=== PATIENT | male | born 1950 | race Caucasian/White ===

== ENCOUNTER → 2016-12-22 | Outpatient (REF) | payer OTHER, MEDICARE ==
[~2016-12-22] MED LIST: /INSU7030 SC; ACET50TA PO; AMLO10TA2 PO; ASPI325T PO; BISO10TA6 PO; COZA100T2 PO; DOXY150C PO; FERR32TA PO; LASI40TA PO; LEVO500T PO; LIPI80TA PO; LISI5TAB PO; LOSA100T PO; METF1000 PO; MIRA255PW PO; PERC7.5T12 PO
== END ==
LOC: M SMT 16:49
PROVIDERS: ATTEND Nurse Practitioner Women's Health
DX: N50.812 Left testicular pain (principal)

== ENCOUNTER → 2017-06-23 | Outpatient (CLI) | payer MEDICARE, OTHER ==
[2017-06-23 13:24] LABS: ANION GAP 6 MEQ/L (8-16); BLOOD UREA NITROGEN 19 MG/DL (7-18); CALCIUM LEVEL 9.1 MG/DL (8.8-10.2); CARBON DIOXIDE LEVEL 31 MEQ/L (21-32); CHLORIDE LEVEL 101 MEQ/L (98-107); CREATININE FOR GFR 0.92 MG/DL (0.70-1.30); GLOMERULAR FILTRATION RATE > 60.0 (>49); GLUCOSE, FASTING 275 MG/DL (80-110); POTASSIUM SERUM 4.3 MEQ/L (3.5-5.1); SODIUM LEVEL 138 MEQ/L (136-145)
== END ==
LOC: M WUC 10:27
PROVIDERS: ATTEND Internal Medicine Endocrinology, Diabetes & Metabolism
DX: E83.51 Hypocalcemia (principal)

== ENCOUNTER 2020-03-21 09:20 | Day surgery (SDC) | payer MEDICARE, OTHER ==
[~2020-03-21 09:20] MED LIST changes: -/INSU7030 SC; -ACET50TA PO; +MAPA500T17 PO; -MIRA255PW PO; +NOVO1INJ4 SC; +POLY1POW4 PO
[2020-03-21] MEDS ORDERED: propofoL 200 MG/20 ML VIAL ONE (09:45)
[2020-03-21] MEDS ORDERED: LIDOCAINE 2% 100MG/5ML SDV (FOR ANES.) ONE (09:45)
== END 2020-03-21 10:30 | disposition home or self-care (01) ==
LOC: M SDC 09:20
PROVIDERS: ATTEND Surgery
DX: Z12.11 Encounter for screening for malignant neoplasm of colon (principal); Z86.010 Personal history of colon polyps; D12.6 Benign neoplasm of colon, unspecified; K57.30 Diverticulosis of large intestine without perforation or abscess without bleeding; G47.30 Sleep apnea, unspecified; I10 Essential (primary) hypertension; Z79.4 Long term (current) use of insulin; Z79.899 Other long term (current) drug therapy; Z87.891 Personal history of nicotine dependence

== ENCOUNTER 2021-03-22 08:51 | Emergency (ER) | payer MEDICARE, OTHER ==
[~2021-03-22] VITALS: Ht 172.7 cm; Wt 161.0 kg
[2021-03-22] MEDS ORDERED: AMLO1TAB25 (09:17)
[2021-03-22] MEDS ORDERED: ATOR40TA75 (09:17)
[2021-03-22] MEDS ORDERED: LOSA100T50 (09:17)
[2021-03-22] MEDS ORDERED: HUMU70IN (09:17)
[2021-03-22] MEDS ORDERED: SPIR-10 (09:17)
[2021-03-22] MEDS ORDERED: FURO80TA2 (09:17)
[2021-03-22] MEDS ORDERED: METF10004 (09:17)
[2021-03-22] MEDS ORDERED: BISO5TAB14 (09:17)
[2021-03-22] MEDS ORDERED: KETOROLAC 60MG 2ML VIAL IM ONE (10:15)
[2021-03-22] MEDS ORDERED: VICT18IN SC (10:23)
[2021-03-22] MEDS ORDERED: VITAD400CA FT (10:23)
--- NOTE | 2021-03-22 10:46 | REP ---
INDICATION: L sided back pain into L leg. COMPARISON: None. TECHNIQUE: Axial scans with sagittal and coronal reconstructions. FINDINGS: Who minimal old T12 compression fracture. 4 mm retrolisthesis L1 on L2. 5 mm retrolisthesis L2 on L3. 7 mm anterolisthesis of L4 on L5. Severe multilevel facet arthropathy. Multi level spinal stenosis and foraminal encroachment. No fractures. L1-2 level: Decrease height and attenuation of the disc with gas in the central portion of the disc. Bilateral foraminal encroachment. Facet arthropathy. Mild spinal stenosis. L2-3 level: Decreased height of the disc with gas in the central portion of the disc. Disc bulging. Bilateral foraminal encroachment. Ligamentum flavum/facet arthropathy. Moderate to severe spinal stenosis. L3-4 level: decreased height of the disc. Gas in the central portion of the disc. Bulging disc. Bilateral foraminal encroachment. Limited flavum/facet arthropathy. Severe spinal stenosis. L4-5: 7 mm anterolisthesis L4 on L5, degenerated and bulging L4-5 disc. Marked ligamentum flavum/facet arthropathy. Severe spinal stenosis and bilateral foraminal encroachment. L5-S1: Degeneration of the disc. Bilateral foraminal encroachment. Facet arthropathy. Neural canal shows normal dimensions. IMPRESSION: Multilevel spinal stenosis most severe at the L4-5 level. Multilevel foraminal encroachment and disc degeneration. <Electronically signed by Aguilar Blanco > 03/22/21 [id number]
[2021-03-22 10:54] VITALS: BP 136/75
[2021-03-22] MEDS ORDERED: KETO10TAB PO (11:10)
== END 2021-03-22 11:15 | disposition home or self-care (01) ==
LOC: M ED 08:51
DX: M48.061 Spinal stenosis, lumbar region without neurogenic claudication (principal); M51.26 Other intervertebral disc displacement, lumbar region; M51.27 Other intervertebral disc displacement, lumbosacral region; E11.9 Type 2 diabetes mellitus without complications; G47.33 Obstructive sleep apnea (adult) (pediatric); Z79.4 Long term (current) use of insulin; Z79.899 Other long term (current) drug therapy; Z96.641 Presence of right artificial hip joint
CPT/HCPCS: 72131; 96372; 99283; J1885

== ENCOUNTER 2021-03-28 12:03 | Emergency (ER) | payer MEDICARE, OTHER ==
[~2021-03-28] VITALS: Ht 170.2 cm; Wt 163.7 kg
[~2021-03-28 12:03] MED LIST changes: +AMLO1TAB25; +ATOR40TA75; +BISO5TAB14; +FURO80TA2; +HUMU70IN; +KETO10TAB PO; +LOSA100T50; +METF10004; +SPIR-10; +VICT18IN SC; +VITAD400CA FT
[2021-03-28] MEDS ORDERED: LIDO5DIS41 TD (14:46)
[2021-03-28] MEDS ORDERED: METH-1165 PO (14:46)
[2021-03-28 15:14] VITALS: BP 137/73
== END 2021-03-28 15:26 | disposition home or self-care (01) ==
LOC: M ED 12:03
DX: M48.061 Spinal stenosis, lumbar region without neurogenic claudication (principal); M51.26 Other intervertebral disc displacement, lumbar region; M51.27 Other intervertebral disc displacement, lumbosacral region; M79.605 Pain in left leg; E11.9 Type 2 diabetes mellitus without complications; I10 Essential (primary) hypertension; E78.5 Hyperlipidemia, unspecified; G47.33 Obstructive sleep apnea (adult) (pediatric); Z79.82 Long term (current) use of aspirin; Z79.899 Other long term (current) drug therapy

== ENCOUNTER 2021-04-06 10:12 | Inpatient (IN) | payer MEDICARE, OTHER ==
[~2021-04-06] VITALS: Ht 172.7 cm; Wt 158.4 kg
[~2021-04-06 10:12] MED LIST changes: +LIDO5DIS41 TD; -LOSA100T50; +LOSA100T50 PO; -METF10004; +METF10004 PO; +METH-1165 PO; -SPIR-10; +SPIR-10 PO
[2021-04-06] MEDS ORDERED: BOOSTRIX/ADACEL VACCINE (DIPHTH/PERTUSS/ACELL/TETANUS) 0.5ML SYR IM ONE (11:15)
[2021-04-06 11:20] LABS: BASO % 0.2 % (0.0-1.0); EOS % 0.2 % (0.0-3.0); HEMATOCRIT 36.7 % (42.0-52.0); HEMOGLOBIN 11.8 g/dl (13.5-17.5); LYMPH # 0.7 10^3/uL (1.5-5.0); LYMPH % 4.4 % (24.0-44.0); MEAN CORPUSCULAR HEMOGLOBIN 30.1 pg (27.0-33.0); MEAN CORPUSCULAR HGB CONC 32.2 g/dl (32.0-36.5); MEAN CORPUSCULAR VOLUME 93.6 fl (80.0-96.0); MONO # 0.8 10^3/uL (0.0-0.8); MONO % 4.7 % (2.0-8.0); NEUTROPHILS # 14.4 10^3/uL (1.5-8.5); NEUTROPHILS % 89.9 % (36.0-66.0); PLATELET COUNT, AUTOMATED 211 10^3/uL (150-450); RED BLOOD COUNT 3.92 10^6/uL (4.30-6.10)
[2021-04-06 11:40] LABS: ERYTHROCYTE SEDIMENTATION RATE 54 mm/hr (0-20)
--- NOTE | 2021-04-06 11:52 | REP ---
INDICATION: pain, sp fall COMPARISON: None. TECHNIQUE: AP and lateral right tibia/fibula FINDINGS: Arthritic changes at the knee and ankle. No acute fracture or dislocation. Small calcifications versus chronic foreign bodies along the anterior mid quintanilla. IMPRESSION: No acute fracture or dislocation. <Electronically signed by Josh Lagos > 04/06/21 114
[2021-04-06 11:53] LABS: ALBUMIN 3.1 GM/DL (3.2-5.2); ALT/SGPT 46 U/L (12-78); BILIRUBIN,DIRECT 0.3 MG/DL (0.0-0.2); BLOOD UREA NITROGEN 20 MG/DL (7-18); C REACTIVE PROTEIN QUANTITATIV 5.45 MG/DL (0.00-0.30); CARBON DIOXIDE LEVEL 27 MEQ/L (21-32); CHLORIDE LEVEL 103 MEQ/L (98-107); CK-MB VALUE MASS 4.8 NG/ML (<3.6); CPK CREATINE PHOSPHOKINASE 354 U/L (39-308); CREATININE FOR GFR 0.94 MG/DL (0.70-1.30); GLOMERULAR FILTRATION RATE > 60.0 (>42); GLUCOSE, FASTING 216 MG/DL (70-100); MB/CK RELATIVE INDEX 1.36 (< OR =4); NT-PRO BNP 62 PG/ML (<125); POTASSIUM SERUM 3.7 MEQ/L (3.5-5.1); SODIUM LEVEL 137 MEQ/L (136-145); TOTAL PROTEIN 6.8 GM/DL (6.4-8.2); TROPONIN I < 0.02 NG/ML (< 0.10)
--- NOTE | 2021-04-06 11:53 | REP ---
INDICATION: pain, sp fall COMPARISON: None. TECHNIQUE: AP and frog-lateral right femur FINDINGS: Prior hip replacement in stable satisfactory position. Chronic degenerative changes noted. No acute fracture or dislocation. No subcutaneous emphysema or significant foreign body. IMPRESSION: . No acute fracture or dislocation. <Electronically signed by Josh Lagos > 04/06/21 1141
--- NOTE | 2021-04-06 11:54 | REP ---
INDICATION: swollen legs COMPARISON: 12/16/2015 TECHNIQUE: Portable AP view of the chest FINDINGS: Mediastinum and cardiac silhouette stable. Chronic elevation to the left hemidiaphragm unchanged. No obvious acute consolidation, effusion, or pneumothorax. Skeletal structures are intact. IMPRESSION: Chronic stable changes. No obvious acute consolidation or effusion. <Electronically signed by Josh Lagos > 04/06/21 [id number]
--- NOTE | 2021-04-06 12:37 | REP ---
INDICATION: swllen legs right>left COMPARISON: None. TECHNIQUE: Lance scale and color Doppler evaluation using linear high frequency transducer. FINDINGS: Ultrasound examination of the right and left lower extremity deep venous structures from the common femoral vein through the popliteal veins demonstrates normal compressibility flow and wave patterns in response to respiration and augmentation. There is no evidence for deep venous thrombosis. IMPRESSION: No evidence for deep venous thrombosis. <Electronically signed by Josh Lagos > 04/06/21 [id number]
[2021-04-06] MEDS ORDERED: IMIPENEM/CILASTATIN 500 MG in D5W MINI-BAG PLUS 100 ML IV ONE (12:55)
[2021-04-06] MEDS ORDERED: VANCOMYCIN HCL 2,000 MG in D5W 500 ML IV ONE (12:55)
[2021-04-06] MEDS ORDERED: VANCOMYCIN HCL 1,000 MG, VIAL MATE ADAPTER 1 EACH in NS 250 ML IV ONE ×6 (13:00)
[2021-04-06 13:41] LABS: RSV AMPLIFICATION NEGATIVE (NEGATIVE)
[2021-04-06] MEDS ORDERED: MOM 30ML SUSPENSION UDC PO PRN (13:50)
[2021-04-06] MEDS ORDERED: ACETAMINOPHEN TAB 650MG DOSE (2X325MG) PO PRN (13:50)
[2021-04-06] MEDS ORDERED: MAALOX 30 ML SUSP *UDC PO PRN (13:50)
[2021-04-06] MEDS ORDERED: DEXTROSE 50% 50 ML SYRINGE IV PRN (13:50)
[2021-04-06] MEDS ORDERED: GLUCAGON INJ 1MG VIAL SC PRN (13:50)
[2021-04-06] MEDS ORDERED: GLUCOSE 4GM CHEW TABLET PO PRN (13:50)
[2021-04-06] MEDS ORDERED: FURO80TA2 PO (14:34)
[2021-04-06] MEDS ORDERED: AMLO1TAB25 PO (14:34)
[2021-04-06] MEDS ORDERED: HUMU70IN SC (14:34)
[2021-04-06] MEDS ORDERED: ATOR40TA75 PO (14:34)
[2021-04-06] MEDS ORDERED: METH-1165 PO (14:34)
[2021-04-06] MEDS ORDERED: LIDO1PAD TOP (14:34)
[2021-04-06] MEDS ORDERED: BISO5TAB14 PO (14:34)
--- NOTE | 2021-04-06 14:39 | HPEPDOC ---
[facility] Medical History & Physical Date of Admission Apr 06, 2021 Date of Service: Apr 06, 2021 History and Physical Chief complaint: Presented to [facility] with RLE pain History of present illness: Patient is a 71-year-old male with a PMHx of HTN, CHF?, DLP, IDDM2, Fatty liver disease, Chronic venous insufficiency, Vitamin D deficiency, Obesity who presented to the emergency room with complaints of RLE pain. Patient reports that 3 weeks ago, he had presented to the hospital with complaints of left leg/hip pain at that time he received a CT scan that had revealed spinal stenosis and degenerative disc disease. Patient was given a follow-up appointment with spinal specialist, Dr. Rodrigues for 04/30/21. One half weeks ago, patient had slipped while getting out of his car, landing on his right leg. Patient reported that he had a minor abrasion at the lower portion of his right leg came to the ER for further evaluation, was given additional pain medications. Advised to continue monitoring his psych for any signs of infection and return if there is any warmth / drainage / tenderness / or signs of infection noted. Patient presented to the emergency room today because his right leg was warm and red. He denied any tenderness reported that at home he was experiencing subjective fevers, no chills. Reported minor amount of drainage from his right leg recently, but not today. Patient denies any chest pain, shortness of breath. Denies any changes. Baseline cough. Has not experienced any nausea, vomiting, abdominal pain, constipation, diarrhea, or urinary discomfort. He reports his appetite is normal and has experienced some weight loss. Past Medical History: HTN, CHF?, DLP, IDDM2, Fatty liver disease, Chronic venous insufficiency, Vitamin D deficiency, Obesity Past Surgical History: Right hip replacement 2005 Benign lump of his neck was removed by ENT, Dr. 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[employer] [facility] Review of Systems: 10 point review of systems complete, all negative otherwise stated in HPI Physical exam: - Vitals: BP [143/81], HR [79], RR [24], Sat [97%RA], Temp [98.3F] - General: Sitting up at the edge of the bed, No acute distress, Speaking in full sentences, AAOx3 - HEENT: NC, AT, PERRLA - CVS: RRR, +S1S2, - Murmurs / rubs / gallops - Lungs: Fair air entry bilaterally, No appreciable wheezing / rales / rhonchi - Abdomen: Soft, Non-distended, Non-tender, Obese - Extremities: 2+ pitting edema bilaterally - patient reports that his current leg swelling has been chronic - Neuro: No focal motor or sensory deficit - Skin: Right lower extremity with erythema and warmth noted on the anterior surface. No tenderness. No drainage noted. Small abrasion noted at the distal aspect of his right leg. Labs: See below Imaging: CXR 04/06: Chronic stable changes. No obvious acute consolidation or effusion. Vascular US 04/06: No evidence for deep venous thrombosis. XR Femur 04/06: No acute fracture or dislocation. XR Tib/Fib 04/06: No acute fracture or dislocation. EKG: See below Assessment and Plan: RLE cellulitis - Patient reported that 1.5 ago, he had fallen out of his car and sustained an abrasion of his RLE - Hemodynamically stable / Afebrile - Leukocytosis with neutrophil predominance / Elevated CRP - Imaging negative for any blood clots or fractures - Will check procalcitonin / blood cultures / ASO / MRSA screen - Will trend CRP - Will start Augmentin / Doxycycline (Day #1) - If clinical improvement is noted, will anticipate discharge home tomorrow HTN - Blood pressure currently is well controlled - c/w Furosemide / Spironolactone / Losartan / Bisoprolol / Amlodipine with hold parameters CHF? - Patient reports that he had an echocardiogram completed 5 years ago - Will continue with spironolactone and furosemide - Patient does not have a senior business broker, will suggest he follow-up with his primary care provider for referral on discharge DLP - c/w Statin IDDM2 - Glucose well controlled - Will start ISS; will provide low dose Levemir Fatty liver disease - Was noted in his medical record in the past - No LFT abnormalities noted. Currently Chronic venous insufficiency Vitamin D deficiency - Will c/w supplementation on discharge Obesity - BMI 54.3 - Complicating medical care DVT prophylaxis - Will start Heparin Vital Signs Vital Signs Date Time Temp Pulse Resp B/P (MAP) Pulse Ox O2 Delivery O2 Flow Rate FiO2 04/06/21 13:59 79 24 143/81 (101) 97 Room Air 04/06/21 10:14 98.3 Laboratory Data Labs 24H Laboratory Tests 2 04/06/21 10:58: Immature Granulocyte % (Auto) 0.6, Neutrophils (%) (Auto) 89.9H, Lymphocytes (%) (Auto) 4.4L, Monocytes (%) (Auto) 4.7, Eosinophils (%) (Auto) 0.2, Basophils (%) (Auto) 0.2, Neutrophils # (Auto) 14.4H, Lymphocytes # (Auto) 0.7L, Monocytes # (Auto) 0.8, Eosinophils # (Auto) 0.0, Basophils # (Auto) 0.0, Nucleated Red Blood Cells % (auto) 0.0, Erythrocyte Sedimentation Rate 54H, Anion Gap 7L, Glomerular Filtration Rate > 60.0, Calcium Level 9.0, Total Bilirubin 1.0, Direct Bilirubin 0.3H, Aspartate Amino Transf (AST/SGOT) 31, Alanine Aminotransferase (ALT/SGPT) 46, Alkaline Phosphatase 78, Total Creatine Kinase 354H, Creatine Kinase MB 4.8H, Creatine Kinase MB Relative Index 1.36, Troponin I < 0.02, C-Reactive Protein, Quantitative 5.45H, EJ-Tcc-V-Type Natriuretic Peptide 62, Total Protein 6.8, Albumin 3.1L, Albumin/Globulin Ratio 0.8 04/06/21 12:57: Coronavirus (COVID-19)(PCR) NEGATIVE, Influenza Type A (RT-PCR) NEGATIVE, Influenza Type B (RT-PCR) NEGATIVE, Respiratory Syncytial Virus (PCR) NEGATIVE CBC/BMP Laboratory Tests 04/06/21 10:58 Microbiology Microbiology 04/06/21 Blood Culture, Received Pending 04/06/21 Blood Culture, Received Pending Home Medications Scheduled Amlodipine Besylate (Amlodipine Besylate) 10 Mg Tablet, 10 MG PO DAILY Atorvastatin Calcium (Atorvastatin Calcium) 40 Mg Tablet, 40 MG PO DAILY Bisoprolol Fumarate (Bisoprolol Fumarate) 5 Mg Tablet, 5 MG PO DAILY Furosemide (Furosemide) 80 Mg Tablet, 80 MG PO BID Lidocaine (Lidocaine) 5% Adh..patch, 1 APPLIC TOP DAILY Liraglutide (Victoza 2-Nii) 0.6 Mg/0.1 Ml Pen.injctr, 1.2 MG SC DAILY Losartan Potassium (Losartan Potassium) 100 Mg Tablet, 100 MG PO DAILY Metformin HCl (Metformin HCl) 1,000 Mg Tablet, 1,000 MG PO BID Methocarbamol (Methocarbamol) 750 Mg Tablet, 750 MG PO TID Spironolactone (Spironolactone) 25 Mg Tablet, 25 MG PO DAILY Vitamin D (Vitamin D3) 10 Mcg Tablet, 2,000 MCG FT DAILY Miscellaneous Medications Insulin NPH Hum/Reg Insulin Hm (Humulin 70-30 Vial) 100 Unit/1 Ml Vial Allergies Coded Allergies: No Known Allergies (Unverified , 03/22/21) PERLA VIGIL MD Apr 06, 2021 14:38
[2021-04-06 14:55] VITALS: BP 135/68
[2021-04-06] MEDS: DOXYCYCLINE HYCLATE 100MG TABLET PO SCH ×2 (15:25→21:52)
[2021-04-06] MEDS: AUGMENTIN 875 MG TAB PO SCH ×2 (15:25→21:52)
[2021-04-06] MEDS ORDERED: D31000TA2 PO (15:39)
[2021-04-06] MEDS ORDERED: ASPI325T57 PO (15:39)
[2021-04-06] MEDS ORDERED: KETO10TAB PO (15:39)
[2021-04-06] MEDS ORDERED: HOME MED LIST COMPLETE! XX SCH (15:40)
[2021-04-06 15:42] LABS: ANTI-STREPTOLYSIN O QUANT 62.9 IU/ML (<214.0)
[2021-04-06] MEDS: HumaLOG INSULIN (NovoLOG) PER UNIT SC SCH (17:27)
[2021-04-06] MEDS ORDERED: methocarbamoL 750 MG TAB PO PRN (18:30)
--- NOTE | 2021-04-06 19:24 | ECGEPIP ---
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
[2021-04-06] MEDS ORDERED: HumaLOG INSULIN (NovoLOG) PER UNIT SC SCH (21:00)
[2021-04-06] MEDS ORDERED: ATORVASTATIN 20 MG TAB PO SCH (21:00)
[2021-04-06] MEDS ORDERED: FUROSEMIDE 80 MG TAB PO SCH (21:00)
[2021-04-06] MEDS ORDERED: LIDOCAINE 5% (LIDODERM) PATCH TD SCH (21:00)
[2021-04-06] MEDS ORDERED: ASPIRIN 325 MG TAB PO SCH (21:00)
[2021-04-06] MEDS: DOCUSATE SODIUM 100MG CAPSULE PO SCH (21:53)
[2021-04-06] MEDS: HEPARIN SOD (PORCINE) 5000UNITS/ML 1ML VIAL/SYRINGE SC SCH (21:53)
[2021-04-06 22:00] VITALS: BP 139/65
[2021-04-07] MEDS: HEPARIN SOD (PORCINE) 5000UNITS/ML 1ML VIAL/SYRINGE SC SCH (05:15)
[2021-04-07 06:00] VITALS: BP 139/68
[2021-04-07] MEDS: HumaLOG INSULIN (NovoLOG) PER UNIT SC SCH ×2 (07:30→08:51)
[2021-04-07 07:55] LABS: BASO % 0.3 % (0.0-1.0); EOS # 0.1 10^3/uL (0.0-0.5); EOS % 0.7 % (0.0-3.0); HEMATOCRIT 37.2 % (42.0-52.0); LYMPH # 1.1 10^3/uL (1.5-5.0); LYMPH % 8.3 % (24.0-44.0); MEAN CORPUSCULAR HEMOGLOBIN 30.2 pg (27.0-33.0); MEAN CORPUSCULAR HGB CONC 32.3 g/dl (32.0-36.5); MEAN CORPUSCULAR VOLUME 93.5 fl (80.0-96.0); MONO # 1.3 10^3/uL (0.0-0.8); MONO % 10.4 % (2.0-8.0); NEUTROPHILS # 10.2 10^3/uL (1.5-8.5); NEUTROPHILS % 79.9 % (36.0-66.0); PLATELET COUNT, AUTOMATED 198 10^3/uL (150-450); RED BLOOD COUNT 3.98 10^6/uL (4.30-6.10); WHITE BLOOD COUNT 12.8 10^3/uL (4.0-10.0)
[2021-04-07 08:11] LABS: BLOOD UREA NITROGEN 16 MG/DL (7-18); CALCIUM LEVEL 8.9 MG/DL (8.8-10.2); CARBON DIOXIDE LEVEL 29 MEQ/L (21-32); CHLORIDE LEVEL 101 MEQ/L (98-107); CREATININE FOR GFR 0.85 MG/DL (0.70-1.30); GLOMERULAR FILTRATION RATE > 60.0 (>42); GLUCOSE, FASTING 153 MG/DL (70-100); MAGNESIUM LEVEL 1.9 MG/DL (1.8-2.4); POTASSIUM SERUM 3.8 MEQ/L (3.5-5.1); SODIUM LEVEL 138 MEQ/L (136-145)
[2021-04-07] MEDS: DOCUSATE SODIUM 100MG CAPSULE PO SCH (08:49)
[2021-04-07] MEDS: AUGMENTIN 875 MG TAB PO SCH (08:49)
[2021-04-07] MEDS: DOXYCYCLINE HYCLATE 100MG TABLET PO SCH (08:49)
[2021-04-07 08:50] VITALS: BP 138/65
[2021-04-07] MEDS ORDERED: LIDOCAINE 5% (LIDODERM) PATCH TD SCH (09:00)
[2021-04-07] MEDS ORDERED: bisoproloL fumarate 5 MG TAB PO SCH (09:00)
[2021-04-07] MEDS ORDERED: SPIRONOLACTONE 25 MG TAB PO SCH (09:00)
[2021-04-07] MEDS ORDERED: VITAMIN D 1,000 INTERNATIONAL UNITS TABLET PO SCH (09:00)
[2021-04-07] MEDS ORDERED: LOSARTAN 50MG TABLET PO SCH (09:00)
[2021-04-07] MEDS ORDERED: **NOTE PATIENT COMMENT** MISC XX SCH (09:00)
[2021-04-07] MEDS ORDERED: DOXY100T PO (10:10)
[2021-04-07] MEDS ORDERED: AMOX875T2 PO (10:10)
--- NOTE | 2021-04-07 10:11 | DS.PDOC ---
Discharge Summary General Date of Admission Apr 06, 2021 at 13:47 Date of Discharge 04/07/21 Primary Care Physician: ELIEL SANDOVAL DO Attending Physician: JAMES BOB MD Discharge Summary PROCEDURES PERFORMED DURING STAY: None. ADMITTING/DISCHARGE DIAGNOSES: Right lower extremity cellulitis Hypertension Questionable CHF Dyslipidemia Insulin-dependent diabetes mellitus type 2 Fatty liver disease Chronic venous insufficiency Vitamin D deficiency Obesity COMPLICATIONS/CHIEF COMPLAINT: Right lower extremity pain HISTORY OF PRESENT ILLNESS/HOSPITAL COURSE: "Patient is a 71-year-old male with a PMHx of HTN, CHF?, DLP, IDDM2, Fatty liver disease, Chronic venous insufficiency, Vitamin D deficiency, Obesity who presented to the emergency room with complaints of RLE pain. Patient reports that 3 weeks ago, he had presented to the hospital with complaints of left leg/hip pain at that time he received a CT scan that had revealed spinal stenosis and degenerative disc disease. Patient was given a follow-up appointment with spinal specialist, Dr. Rodrigues for 04/30/21. One half weeks ago, patient had slipped while getting out of his car, landing on his right leg. Patient reported that he had a minor abrasion at the lower portion of his right leg came to the ER for further evaluation, was given additional pain medications. Advised to continue monitoring his psych for any signs of infection and return if there is any warmth / drainage / tenderness / or signs of infection noted. Patient presented to the emergency room today because his right leg was warm and red. He denied any tenderness reported that at home he was experiencing subjective fevers, no chills. Reported minor amount of drainage from his right leg recently, but not today. Patient denies any chest pain, shortness of breath. Denies any changes. Baseline cough. Has not experienced any nausea, vomiting, abdominal pain, constipation, diarrhea, or urinary discomfort. He reports his appetite is normal and has experienced some weight loss." Patient was given imipenem and IV vancomycin in the emergency department which was discontinued and was started on Augmentin and doxycycline with improvement overnight and his white blood cell count as well as his cellulitis on his right lower extremity. ASO antibodies negative, MRSA screen negative. the following day he felt comfortable being discharged home with 6 additional days of doxycycline and Augmentin as well as follow-up with his primary care provider. DISCHARGE MEDICATIONS: Please see below. ALLERGIES: Please see below. PHYSICAL EXAMINATION ON DISCHARGE: VITAL SIGNS: Please see below. General: Patient is seen in his room at his bedside chair sitting upright speaking in complete sentences in no acute distress A/O x3. HEENT: NC, AT, EOMI, mucous membranes moist. CVS: RRR, +S1 AND S2, no murmurs / rubs / gallops Lungs: CTAB with mildly diminished breath sounds, no wheezing, crackles, rhonchi. Abdomen: Soft, Non-distended, Non-tender, Obese Extremities: 2+ pitting edema bilaterally - patient reports that his current leg swelling has been chronic Neuro: No focal motor or sensory deficit Skin: Right lower extremity with reduced erythema and warmth noted on the anterior surface. No tenderness. No drainage noted. Small abrasion noted at the distal aspect of his right leg. LABORATORY DATA: Please see below. IMAGING: CXR 04/06: "Chronic stable changes. No obvious acute consolidation or effusion." Vascular US 04/06: "No evidence for deep venous thrombosis." XR Femur 04/06: "No acute fracture or dislocation." XR Tib/Fib 04/06: "No acute fracture or dislocation." PROGNOSIS: Good ACTIVITY: As tolerated DIET: As tolerated DISCHARGE PLAN: Home DISPOSITION: 01 Home, Self-Care. DISCHARGE INSTRUCTIONS: 1. Please follow-up with Dr. Sandoval in the next 1 to 2 weeks 2. Please remain compliant with medication regimen and return to hospital if symptoms worsen DISCHARGE CONDITION: Stable. TIME SPENT ON DISCHARGE: 37 minutes. Vital Signs/I&Os Vital Signs Date Time Temp Pulse Resp B/P (MAP) Pulse Ox O2 Delivery O2 Flow Rate FiO2 04/07/21 08:50 138/65 04/07/21 08:50 84 04/07/21 06:00 97.0 18 96 Room Air I&O- Last 24 Hours up to 6 AM 04/07/21 06:00 Intake Total 540 ml Output Total 375 ml Balance 165 ml Laboratory Data Labs 24H Laboratory Tests 2 04/06/21 10:58: Immature Granulocyte % (Auto) 0.6, Neutrophils (%) (Auto) 89.9H, Lymphocytes (%) (Auto) 4.4L, Monocytes (%) (Auto) 4.7, Eosinophils (%) (Auto) 0.2, Basophils (%) (Auto) 0.2, Neutrophils # (Auto) 14.4H, Lymphocytes # (Auto) 0.7L, Monocytes # (Auto) 0.8, Eosinophils # (Auto) 0.0, Basophils # (Auto) 0.0, Nucleated Red Blood Cells % (auto) 0.0, Erythrocyte Sedimentation Rate 54H, Anion Gap 7L, Glomerular Filtration Rate > 60.0, Calcium Level 9.0, Total Bilirubin 1.0, Direc t Bilirubin 0.3H, Aspartate Amino Transf (AST/SGOT) 31, Alanine Aminotransferase (ALT/SGPT) 46, Alkaline Phosphatase 78, Total Creatine Kinase 354H, Creatine Kinase MB 4.8H, Creatine Kinase MB Relative Index 1.36, Troponin I < 0.02, C- Reactive Protein, Quantitative 5.45H, CB-Umu-I-Type Natriuretic Peptide 62, Total Protein 6.8, Albumin 3.1L, Albumin/Globulin Ratio 0.8 04/06/21 12:57: Coronavirus (COVID-19)(PCR) NEGATIVE, Influenza Type A (RT-PCR) NEGATIVE, Influenza Type B (RT-PCR) NEGATIVE, Respiratory Syncytial Virus (PCR) NEGATIVE 04/06/21 14:49: Procalcitonin 0.11, Anti-Streptolysin O Antibody 62.9 04/06/21 15:08: Methicillin-Resist S.aureus DNA PCR NOT DETECTED 04/06/21 16:43: Bedside Glucose (Misc Panel) 187H 04/06/21 21:02: Bedside Glucose (Misc Panel) 189H 04/07/21 04:41: Bedside Glucose (Misc Panel) 161H 04/07/21 07:14: Immature Granulocyte % (Auto) 0.4, Neutrophils (%) (Auto) 79.9H, Lymphocytes (%) (Auto) 8.3L, Monocytes (%) (Auto) 10.4H, Eosinophils (%) (Auto) 0.7, Basophils (%) (Auto) 0.3, Neutrophils # (Auto) 10.2H, Lymphocytes # (Auto) 1.1L, Monocytes # (Auto) 1.3H, Eosinophils # (Auto) 0.1, Basophils # (Auto) 0.0, Nucleated Red Blood Cells % (auto) 0.0, Anion Gap 8, Glomerular Filtration Rate > 60.0, Calcium Level 8.9, Magnesium Level 1.9, C-Reactive Protein, Quantitative 11.00H CBC/BMP Laboratory Tests 04/06/21 10:58 04/07/21 07:14 FSBS Laboratory Tests Test 04/06/21 16:43 04/06/21 21:02 04/07/21 04:41 Range/Units Bedside Glucose (Misc Panel) 187 189 161 83-110 MG/DL Microbiology Microbiology 04/06/21 Blood Culture, Received Pending 04/06/21 Blood Culture, Received Pending Discharge Medications Scheduled Amlodipine Besylate (Amlodipine Besylate) 10 Mg Tablet, 10 MG PO DAILY, (Reported) Amoxicillin/Potassium Clav (Amox-Clav 875-125 mg Tablet) 1 Each Tablet, 875 MG PO BID Aspirin (Aspirin) 325 Mg Tablet, 325 MG PO QHS, (Reported) Atorvastatin Calcium (Atorvastatin Calcium) 40 Mg Tablet, 40 MG PO QHS, (Reported) Bisoprolol Fumarate (Bisoprolol Fumarate) 5 Mg Tablet, 5 MG PO DAILY, (Reported) Cholecalciferol (Vitamin D3) (Vitamin D3) 1,000 Unit Tablet, 2,000 UNITS PO DAILY, (Reported) Doxycycline Hyclate (Doxycycline Hyclate) 100 Mg Tablet, 100 MG PO BID Please take 1 tablet with food twice daily Furosemide (Furosemide) 80 Mg Tablet, 80 MG PO QHS, (Reported) Insulin NPH Hum/Reg Insulin Hm (Humulin 70-30 Vial) 100 Unit/1 Ml Vial, 1 DOSE SC BIDWM, (Reported) PER SLIDING SCALE Liraglutide (Victoza 2-Nii) 0.6 Mg/0.1 Ml Pen.injctr, 1.2 MG SC DAILY, (Reported) Losartan Potassium (Losartan Potassium) 100 Mg Tablet, 100 MG PO DAILY, (Reported) Metformin HCl (Metformin HCl) 1,000 Mg Tablet, 1,000 MG PO BID, (Reported) Spironolactone (Spironolactone) 25 Mg Tablet, 25 MG PO DAILY, (Reported) Scheduled PRN Ketorolac Tromethamine (Ketorolac Tromethamine) 10 Mg Tablet, 10 MG PO Q6H PRN for PAIN, (Reported) Methocarbamol (Methocarbamol) 750 Mg Tablet, 750 MG PO TID PRN for MUSCLE SPASMS, (Reported) Allergies Coded Allergies: No Known Allergies (Unverified , 03/22/21) GME ATTESTATION GME ATTESTATION My faculty preceptor for this patient encounter was physically present during the encounter and was fully available. All aspects of the patient interview, examination, medical decision making process, and medical care plan development were reviewed and approved by the faculty preceptor. The faculty preceptor is aware and concurs with the plan as stated in the body of this note and will attest to such by his/her cosignature. ATTENDING NOTE I, James Bob, have independently examined this patient and performed my own physical exam, as well as reviewed the documentation and edited where necessary. I have discussed in detail with the resident / student the findings and plan of treatment as documented by the resident / student and edited their note. I agree with their findings and treatment plan and have edited their documentation. I will continue to follow the patient during this hospital stay. Time spent on discharge 35 minutes - Improved faster than expected ALTON LANTIGUA DO Apr 07, 2021 10:11 JAMES BOB MD Apr 07, 2021 12:57
== END 2021-04-07 13:10 | disposition home or self-care (01) | DRG 603 ==
LOC: M ED 10:12 → M ED INP 13:47 → ENRESERV 14:20 → M MSPAV 14:55
PROVIDERS: ADMIT Internal Medicine; ATTEND Internal Medicine
DX: L03.115 Cellulitis of right lower limb (principal); Z68.43 Body mass index [BMI] 50.0-59.9, adult; E66.9 Obesity, unspecified; I11.0 Hypertensive heart disease with heart failure; E11.9 Type 2 diabetes mellitus without complications; I50.9 Heart failure, unspecified; E78.5 Hyperlipidemia, unspecified; Z79.4 Long term (current) use of insulin; K76.0 Fatty (change of) liver, not elsewhere classified; E55.9 Vitamin D deficiency, unspecified; I87.8 Other specified disorders of veins; Z79.82 Long term (current) use of aspirin; Z79.899 Other long term (current) drug therapy; Z88.8 Allergy status to other drugs, medicaments and biological substances

== ENCOUNTER → 2021-04-11 | Outpatient (REF) | payer MEDICARE, OTHER ==
[~2021-04-11] MED LIST changes: +AMLO1TAB25 PO; +AMOX875T2 PO; +ASPI325T57 PO; +ATOR40TA75 PO; +BISO5TAB14 PO; +D31000TA2 PO; +DOXY100T PO; +FURO80TA2 PO; +HUMU70IN SC; +LIDO1PAD TOP
== END ==
LOC: M LAB REF 16:11
PROVIDERS: ATTEND Internal Medicine
DX: L03.115 Cellulitis of right lower limb (principal)

== ENCOUNTER 2021-04-20 12:16 | Emergency (ER) | payer MEDICARE, OTHER ==
[~2021-04-20] VITALS: Ht 172.7 cm; Wt 166.8 kg
[2021-04-20 12:16] VITALS: BP 159/93
== END 2021-04-20 12:52 | disposition left against medical advice (07) ==
LOC: M ED 12:16
DX: Z53.21 Procedure and treatment not carried out due to patient leaving prior to being seen by health care provider (principal)

== ENCOUNTER → 2021-04-25 | Outpatient (REF) | payer MEDICARE, OTHER ==
[~2021-04-25] MED LIST changes: +LOSA100T45 PO; -LOSA100T50 PO
== END ==
LOC: M LAB REF 15:56
PROVIDERS: ATTEND Internal Medicine
DX: L03.115 Cellulitis of right lower limb (principal)

== ENCOUNTER → 2024-04-05 | Outpatient (CLI) | payer MEDICARE, OTHER ==
[~2024-04-05] MED LIST changes: -D31000TA2 PO; -LOSA100T45 PO; +LOSA100T46 PO; +VITA100093 PO
== END ==
LOC: M WUC 10:27
PROVIDERS: ATTEND Internal Medicine
DX: R05.3 Chronic cough (principal); J98.11 Atelectasis

== ENCOUNTER → 2024-06-06 | Outpatient (REF) | payer MEDICARE, OTHER | LOC: M LAB REF 17:51 | PROVIDERS: ATTEND Internal Medicine | DX: D50.9 Iron deficiency anemia, unspecified (principal) ==

== ENCOUNTER 2024-12-04 13:20 | Emergency (ER) | payer MEDICARE, OTHER ==
[~2024-12-04] VITALS: Ht 172.7 cm; Wt 154.6 kg
[2024-12-04] MEDS ORDERED: LIDO5CRE6 TOP (17:36)
[2024-12-04 17:49] VITALS: BP 134/61; TEMP 98.5; O2SAT 100
== END 2024-12-04 17:50 | disposition home or self-care (01) ==
LOC: M ED 13:20
DX: M16.12 Unilateral primary osteoarthritis, left hip (principal); M17.12 Unilateral primary osteoarthritis, left knee; M76.32 Iliotibial band syndrome, left leg; E11.9 Type 2 diabetes mellitus without complications; I10 Essential (primary) hypertension; G47.30 Sleep apnea, unspecified; Z86.79 Personal history of other diseases of the circulatory system; Z79.2 Long term (current) use of antibiotics; Z79.82 Long term (current) use of aspirin; Z79.4 Long term (current) use of insulin; Z79.899 Other long term (current) drug therapy

== ENCOUNTER 2025-03-07 09:45 | Outpatient (RCR) | payer MEDICARE, OTHER ==
[~2025-03-07 09:45] MED LIST changes: +LIDO1ADH93 TD; +LIDO5CRE6 TOP; -LIDO5DIS41 TD
== END 2025-03-08 ==
LOC: M PT 09:45
PROVIDERS: ATTEND Physician Assistant Surgical
DX: M76.32 Iliotibial band syndrome, left leg (principal)

== ENCOUNTER → 2025-05-15 | Outpatient (REF) | payer MEDICARE, OTHER | LOC: M LAB REF 17:41 | PROVIDERS: ATTEND Internal Medicine | DX: E11.65 Type 2 diabetes mellitus with hyperglycemia (principal) ==

== ENCOUNTER → 2025-07-20 | Outpatient (REF) | payer MEDICARE, OTHER | LOC: M LAB REF 14:19 | PROVIDERS: ATTEND Internal Medicine | DX: M10.9 Gout, unspecified (principal) ==